=== PATIENT | female | born 1960 | race African-American/Black ===

== ENCOUNTER 2023-07-29 16:07 | Emergency (ER) | payer OTHER ==
[2023-07-29] MEDS ORDERED: ONDANSETRON 4 MG/2 ML VIAL ONE (16:52)
[2023-07-29] MEDS ORDERED: NA CHLORIDE 0.9% 1,000 ML ONE (16:53)
[2023-07-29] MEDS ORDERED: FAMOTIDINE 20 MG/2 ML VIAL IV ONE (16:53)
[2023-07-29 17:09] LABS: Absolute Eosinophils 0.1 K/uL (0-0.5); Absolute Lymphocytes (CBC) 2.2 K/uL (0.7-4.9); Absolute Monocytes 0.3 K/uL (0.1-1.3); Absolute Neutrophil 1.7 K/uL (1.8-8.0); Basophils % 0.9 % (0-1.3); Eosinophils % 1.6 % (0-4.4); Hematocrit 37.6 % (36.0-45.0); Hemoglobin 12.5 g/dL (12.0-15.0); Lymphocytes % 51.7 % (15.3-44.8); MCH 28.2 pg (27.0-35.0); MCHC 33.3 g/dL (32.0-36.0); MCV 84.9 fL (80-100); Neutrophils % 39.8 % (41.7-73.7); Nucleated Red Blood Cells % 0.1 % (0-0); Platelets 310 thou/uL (152-406); RBC Red Blood Cell Count 4.43 M/uL (3.86-4.86); Red Cell Distribution Width 14.7 % (12.1-15.2)
[2023-07-29 17:28] LABS: Specific Gravity > 1.030 (1.005-1.030); Sqamous Epithelial <5 /HPF (None Seen); Urine Bacteria <20 /HPF (<20); Urine Bilirubin NEGATIVE (Negative); Urine Blood Negative (Negative); Urine Clarity Turbid (Clear); Urine Color Yellow (Yellow); Urine Culture Reflex Order NOT NEEDED; Urine Glucose NEGATIVE (Negative); Urine Ketones 2+ (Negative); Urine Microscopic Reflex YN ORDER UMIC; Urine Mucus 2+ /HPF (None Seen); Urine Nitrite NEGATIVE (Negative); Urine Protein TRACE (Negative); Urine RBC <5 /HPF (None Seen); Urine Urobilinogen Normal (Normal); Urine WBC <5 /HPF (<5)
[2023-07-29 17:32] LABS: Albumin 3.5 g/dL (3.4-5.0); Albumin/Globulin Ratio 0.8 (1.1-1.8); Anion Gap 5.6 mEq/L (5.0-15.0); Bilirubin Total 0.3 mg/dL (0.2-1.0); Globulin 4.2 g/dL (2.3-3.5); Potassium 3.6 mEq/L (3.5-5.1); Protein, Total 7.7 g/dL (6.4-8.2); SARS-CoV-2 Antigen CONTROL BLUE LINE VIS/BG OK; SARS-CoV-2 Antigen Rapid Res Negative (Negative)
--- NOTE | 2023-07-29 18:02 | ER ---
Nurse's Notes [facility] Name: Dolly Mendes Age: 62 yrs Sex: Female : 1960 Arrival Date: 07/29/2023 Time: 16:07 Bed 5 Private MD: Diagnosis: Nausea with vomiting, unspecified Presentation: 07/28 16:21 Chief complaint: Patient states: went out to eat Thursday, woke up Thursday dizzy and ko1 nauseated/vomited. Feels the same way today, unsure of possibly eating bad food. Coronavirus screen: nausea. Ebola Screen: No symptoms or risks identified at this time. Initial Sepsis Screen: Does the patient meet any 2 criteria? No. Patient's initial sepsis screen is negative. Does the patient have a suspected source of infection? No. Patient's initial sepsis screen is negative. Risk Assessment: Do you want to hurt yourself or someone else? Patient reports no desire to harm self or others. Onset of symptoms was July 26, 2023. 16:21 Method Of Arrival: Ambulatory ko1 16:21 Acuity: IVETH 3 ko1 Triage Assessment: 16:26 General: Appears in no apparent distress. Behavior is calm, cooperative, appropriate ko1 for age. Pain: Denies pain. Historical: - Allergies: 16:26 No Known Allergies; ko1 - Home Meds: 16:26 None [Active]; ko1 - PSHx: 16:26 None; ko1 - Immunization history:: Adult Immunizations up to date. - Infectious Disease History:: Denies. - Social history:: Smoking status: Patient denies any tobacco usage or history of. Screenin:09 [facility] ED Fall Risk Assessment (Adult) History of falling in the last 3 months, nj1 including since admission No falls in past 3 months (0 pts) Confusion or Disorientation No (0 pts) Intoxicated or Sedated No (0 pts) Impaired Gait No (0 pts) Mobility Assist Device Used No (0 pt) Altered Elimination No (0 pt) Score/Fall Risk Level 0 - 2 = Low Risk Oriented to surroundings, Maintained a safe environment, Hourly rounding (assess needs \T\ fall precautionary measures) done. Abuse screen: Denies threats or abuse. Denies injuries from another. Nutritional screening: No deficits noted. Tuberculosis screening: No symptoms or risk factors identified. Assessment: 17:07 General: Appears in no apparent distress. comfortable, Behavior is calm, cooperative, nj1 appropriate for age. Pain: Denies pain. Neuro: Reports dizziness, Malaise. Cardiovascular: Patient's skin is warm and dry. Respiratory: Airway is patent Respiratory effort is even, labored. GI: Reports nausea. 17:55 Reassessment: Patient appears in no apparent distress at this time. Patient and/or nj1 family updated on plan of care and expected duration. Pain level reassessed. Patient is alert, oriented x 3, equal unlabored respirations, skin warm/dry/pink. 18:30 Reassessment: Patient appears in no apparent distress at this time. Patient is alert, nj1 oriented x 3, equal unlabored respirations, skin warm/dry/pink. Vital Signs: 16:21 BP 159 / 64; Pulse 62; Resp 16; Temp 97.6; Pulse Ox 100% ; ko1 17:55 BP 136 / 72; Pulse 55; Resp 16; Pulse Ox 99% on R/A; nj1 18:30 BP 143 / 70; Pulse 57; Resp 15; Pulse Ox 98% on R/A; nj1 ED Course: 16:10 Patient arrived in ED. rg4 16:12 Nany Burns FNP-C [facility]. kb 16:12 Amira Hallman MD is Attending Physician. kb 16:26 Triage completed. ko1 16:26 Arm band placed on right wrist. Patient placed in waiting room, Patient notified of ko1 wait time. 16:37 Jonna Roberson, JORGE is Primary Nurse. nj1 16:45 Inserted saline lock: 20 gauge in right antecubital area, using aseptic technique. nj1 Blood collected. Initiated by Kane Edgar RN. 17:08 Patient has correct armband on for positive identification. Bed in low position. Call nj1 light in reach. Adult w/ patient. Provided Education on: call light, fall precautions. 17:09 No provider procedures requiring assistance completed. nj1 18:31 IV discontinued, intact, bleeding controlled, Pressure dressing applied. nj1 Administered Medications: 16:45 Drug: NS 0.9% IV 1000 ml IV at 1 bolus Per protocol; 1000 mL bolus Route: IV; Rate: 1 rs5 bolus; Site: right antecubital; 18:30 Follow up: Response: No adverse reaction; IV Status: Completed infusion; IV Intake: nj1 1000ml 16:45 Drug: Famotidine IVP 20 mg IVP once; dilute with 10 mL 0.9% NaCl; give over 2 minutes rs5 Route: IVP; Site: right antecubital; 18:30 Follow up: Response: No adverse reaction nj1 16:45 Drug: Ondansetron IVP 4 mg IVP once; over 2 minutes Route: IVP; Site: right antecubital;rs5 18:30 Follow up: Response: No adverse reaction nj1 Medication: 18:31 VIS not applicable for this client. nj1 Intake: 18:30 IV: 1000ml; Total: 1000ml. nj1 Outcome: 18:01 Discharge ordered by . jovan 18:31 Discharged to home ambulatory, nj1 18:31 Condition: stable 18:31 Discharge instructions given to patient, Instructed on discharge instructions, follow up and referral plans. medication usage, Demonstrated understanding of instructions, follow-up care, medications, Prescriptions given X 1, 18:31 Patient left the ED. nj1 Signatures: Nany Burns, LINEN FOLDER-C LINEN FOLDER-Shagufta Leigh rg4 Naomi Arnold RN RN ko1 Kane Rhoades, RN RN rs5 Jonna Roberson RN RN nj1 Corrections: (The following items were deleted from the chart) 17:17 17:10 Inserted saline lock: 20 gauge in right antecubital area, using aseptic nj1 technique. Blood collected. Initiated by Kane Edgar RN nj1
--- NOTE | 2023-07-29 18:02 | EDPHYS ---
Physician Documentation [facility] Name: Dolly Mendes Age: 62 yrs Sex: Female : 1960 Arrival Date: 07/29/2023 Time: 16:07 Bed 5 Private MD: ED Physician Amira Hallman HPI: 07/28 18:00 This 62 yrs old Black Female presents to ER via Ambulatory with complaints of Doesn't kb Feel Well. 21:31 Pt is a 62 year old female who presents for nausea, vomiting and malaise that started kb yesterday morning. States she hasn't had any vomiting today. Reports she ate at [employer] and hasn't felt good since then. Denies fever, diarrhea. Historical: - Allergies: 16:26 No Known Allergies; ko1 - Home Meds: 16:26 None [Active]; ko1 - PSHx: 16:26 None; ko1 - Immunization history:: Adult Immunizations up to date. - Infectious Disease History:: Denies. - Social history:: Smoking status: Patient denies any tobacco usage or history of. ROS: 17:35 Constitutional: As per HPI kb Exam: 17:35 Constitutional: This is a well developed, well nourished patient who is awake, alert, kb and in no acute distress. Head/Face: Normocephalic, atraumatic. ENT: Moist Mucous membranes Cardiovascular: Regular rate Respiratory: Respirations even and unlabored. No increased work of breathing. Talking in full sentences Abdomen/GI: Soft, non-tender. No distention Skin: Warm, dry with normal turgor. Normal color. MS/ Extremity: Pulses equal, no cyanosis. Neurovascular intact. Full, normal range of motion. Neuro: Awake and alert, GCS 15, oriented to person, place, time, and situation. Moves all extremities. Normal gait. Vital Signs: 16:21 BP 159 / 64; Pulse 62; Resp 16; Temp 97.6; Pulse Ox 100% ; ko1 17:55 BP 136 / 72; Pulse 55; Resp 16; Pulse Ox 99% on R/A; nj1 18:30 BP 143 / 70; Pulse 57; Resp 15; Pulse Ox 98% on R/A; nj1 MDM: 16:12 Patient medically screened. kb 17:35 Data reviewed: vital signs, nurses notes. kb 21:30 Differential diagnosis: viral infection, gastroenteritis, covid, flu, dehydration. Test kb considered but Not performed: CT: ct abd considered but pt has no abd tenderness, no abd pain, labs reassuring, afebrile. Counseling: I had a detailed discussion with the patient and/or guardian regarding the historical points, exam findings, and any diagnostic results supporting the discharge/admit diagnosis, lab results, the need for outpatient follow up, a family practitioner, to return to the emergency department if symptoms worsen or persist or if there are any questions or concerns that arise at home. 21:31 Response to treatment: the patient's symptoms have markedly improved after treatment. kb 07/28 16:27 Order name: CBC with Diff; Complete Time: 17:11 kb 07/28 16:27 Order name: CMP; Complete Time: 17:34 kb 07/28 16:27 Order name: Lipase; Complete Time: 17:34 kb 07/28 16:27 Order name: Urinalysis w/ reflexes; Complete Time: 17:30 kb 07/28 16:27 Order name: Flu; Complete Time: 17:34 kb 07/28 16:27 Order name: SARS-COV-2 Antigen Rapid; Complete Time: 17:34 kb 07/28 16:27 Order name: IV Saline Lock; Complete Time: 16:59 kb 07/28 16:27 Order name: Labs collected and sent; Complete Time: 16:59 kb Administered Medications: 16:45 Drug: NS 0.9% IV 1000 ml IV at 1 bolus Per protocol; 1000 mL bolus Route: IV; Rate: 1 rs5 bolus; Site: right antecubital; 18:30 Follow up: Response: No adverse reaction; IV Status: Completed infusion; IV Intake: nj1 1000ml 16:45 Drug: Famotidine IVP 20 mg IVP once; dilute with 10 mL 0.9% NaCl; give over 2 minutes rs5 Route: IVP; Site: right antecubital; 18:30 Follow up: Response: No adverse reaction nj1 16:45 Drug: Ondansetron IVP 4 mg IVP once; over 2 minutes Route: IVP; Site: right antecubital;rs5 18:30 Follow up: Response: No adverse reaction nj1 Disposition Summary: 07/29/23 18:01 Discharge Ordered Notes: Location: Home kb Condition: Stable kb Diagnosis - Nausea with vomiting, unspecified kb Followup: kb - With: Emergency Department - When: As needed - Reason: Worsening of condition Followup: kb - With: Private Physician - When: 2 - 3 days - Reason: Recheck today's complaints, Continuance of care, Re-evaluation by your physician Discharge Instructions: - Discharge Summary Sheet kb - Nausea and Vomiting, Adult, [id number] kb Forms: - Medication Reconciliation Form kb - Antibiotic Education kb - Prescription Opioid Use kb - Patient Portal Instructions kb - Leadership Thank You Letter kb Prescriptions: - Zofran 4 mg Oral tablet - take 1 tablet ORAL route every 6 hours As needed; 12 tablet; Refills: 0, kb Product Selection Permitted Signatures: Dispatcher [employer] EDNany Anderson, DEZ FORD-Naomi Meredith, RN RN ko1 Kane Rhoades RN RN rs5 Jonna Roberson RN nj1
[2023-07-29 18:56] VITALS: BP 143/70; TEMP 97.6; O2SAT 98
== END 2023-07-29 18:31 | disposition home or self-care (01) ==
LOC: ER 16:07
DX: R11.2 Nausea with vomiting, unspecified (principal); Z11.52 Encounter for screening for COVID-19
CPT/HCPCS: 85025; 81001; 36415; 83690; 80053; 87804 ×2; 87811; J2405; J7030